=== PATIENT | female | born 1935 | race Caucasian/White ===

== ENCOUNTER 2022-08-23 08:05 | Day surgery (SDC) | payer MEDICARE ==
[2022-08-19 16:12] LABS: ALBUMIN 3.7 G/DL (3.4-5.0); ALKALINE PHOSPHATASE 50 IU/L (46-116); BLOOD UREA NITROGEN 21 MG/DL (7-18); BUN/CREATININE RATIO 22.1 (6.6-38.0); CALCIUM 8.5 MG/DL (8.5-10.1); CHLORIDE 101 MMOL/L (99-107); CREATININE 0.95 MG/DL (0.40-0.90); PRE OP ALT 19 U/L (30-65); PRE OP ANION GAP 6 (8-16); PRE OP AST 19 U/L (10-37); PRE OP BILIRUB, TOTAL 0.3 MG/DL (0.0-1.0); PRE OP GLUCOSE 123 MG/DL (70-104); PRE OP POTASSIUM 3.9 MMOL/L (3.4-5.1); PRE OP SODIUM 137 MMOL/L (135-145); TOTAL CARBON DIOXIDE 29.8 MMOL/L (24-32); TOTAL PROTEIN 7.4 G/DL (6.4-8.2); eGFR 56 ML/MIN
[2022-08-19 16:20] LABS: BASOPHILS # (AUTO) 0.1 X10'3 (0-0.2); BASOPHILS % (AUTO) 0.7 % (0-1); EOSINOPHILS # (AUTO) 0.4 X10'3 (0-0.9); EOSINOPHILS % (AUTO) 5.9 % (0-6); LYMPHOCYTES # (AUTO) 1.7 X10'3 (1.1-4.8); LYMPHOCYTES % (AUTO) 23.3 % (21-51); MEAN CORPUSCULAR HEMOGLOBIN 31.5 PG (27.0-31.0); MEAN CORPUSCULAR HGB CONC 34.1 g/dL (33.0-36.5); MEAN CORPUSCULAR VOLUME 92.5 FL (78-98); MEAN PLATELET VOLUME 7.7 FL (7.4-10.4); MONOCYTES # (AUTO) 0.5 X10'3 (0-0.9); MONOCYTES % (AUTO) 7.2 % (2-12); NEUTROPHILS # (AUTO) 4.7 X10'3 (1.8-7.7); NEUTROPHILS % (AUTO) 62.9 % (42-75); PRE OP HEMATOCRIT 39.2 % (35.0-45.0); PRE OP HEMOGLOBIN 13.4 g/dL (12.0-16.0); PRE OP PLATELET COUNT 319 X10'3 (140-440); RED BLOOD COUNT 4.24 X10'6 (4.20-5.60); RED CELL DISTRIBUTION WIDTH 13.8 % (11.5-14.5)
[2022-08-23] VITALS (11 sets, daily range): BP systolic 97–128; BP diastolic 46–88
[~2022-08-23] VITALS: Ht 157.5 cm; Wt 71.1 kg
[~2022-08-23 08:05] MED LIST: AMLO5TAB16 PO; ASPI-1071 PO; BUPIVAcaine 0.5% inj/PF 30 ML ONE; CALC600T35; CHOL20002 PO; COLL1CAP; ENZY1CAP PO; LEVO150T8 PO; LIDOcaine 1% 30ml preserv. free vial ONE; LOSA50TA64 PO; MAGN400C PO; MULT-1085 PO; TUMERIC; UBID100C16 PO; ceFAZolin inj. 2,000 MG in dextrose 5%-water 100 ML IV ONE
[2022-08-23] MEDS ORDERED: morphine 4 MG/ML inj SYRINge IV PRN (09:20)
[2022-08-23] MEDS ORDERED: meperidine/PF 25mg/ml syringe IV PRN ×3 (09:20)
[2022-08-23] MEDS ORDERED: ringers solution, lacted 1,000 ML IV SCH (09:20)
[2022-08-23] MEDS ORDERED: morphine 2 MG/ML inj. syringe IV PRN (09:20)
[2022-08-23] MEDS ORDERED: proCHLORperazine 10 MG/2 ml inj IV PRN (09:20)
[2022-08-23] MEDS ORDERED: ondansetron/PF 4mg/2ml inj IV PRN (09:20)
[2022-08-23] MEDS ORDERED: famotidine 20mg tablet PO ONE (09:40)
[2022-08-23] MEDS ORDERED: dexamethasone sod phosphate 10mg/ml inj ONE (09:55)
[2022-08-23] MEDS ORDERED: ondansetron/PF 4mg/2ml inj ONE (09:55)
[2022-08-23] MEDS ORDERED: desflurane 240ml liquid inh. IH ONE (09:55)
[2022-08-23] MEDS ORDERED: fentaNYL/PF 50MCG/1 ML 2ML syringe ONE (10:11)
[2022-08-23] MEDS ORDERED: midazolam 1 mg/ML 2ml injection ONE (10:11)
[2022-08-23] MEDS ORDERED: LIDOcaine 1%/PF 5ML 10 MG/ML VIAL ONE (10:14)
[2022-08-23] MEDS ORDERED: propofol inj 20 ML IV ONE (10:14)
[2022-08-23] MEDS ORDERED: rocuronium 10mg/ml inj IV ONE (10:16)
[2022-08-23] MEDS ORDERED: LIDOcaine 1% 30ml preserv. free vial IJ ONE (10:48)
[2022-08-23] MEDS ORDERED: BUPIVAcaine 0.5% inj/PF 30 ml vial IJ ONE (10:48)
[2022-08-23] MEDS ORDERED: acetaminophen 1,000mg/100ml IV 100 ML IV ONE (11:11)
--- NOTE | 2022-08-23 11:34 | NUR ---
Received from OR via , accompanied by Anesthesiologist TRIP AND OR NURSE and report given by Anesthesiolgist. PT IS DROWSY YET ABLE TO RESPOND TO VERBAL STIMULATION. ANGLE PAIN OR DISCOMFORT. 3 LAP SITES ON ABDOMEN WITH BANDAIDS; CDI. 20G TO LT HAND. VSS Addendum: 08/23/22 at 1221 by Pat Bernabe RN Amended: Links added.
[2022-08-23] MEDS ORDERED: acetaminophen 325mg tablet PO PRN (11:35)
--- NOTE | 2022-08-23 13:24 | NUR ---
I HAVE REVIEWED D/C INSTRUCTIONS WITH PATIENT AND THEY HAVE VERBALIZED UNDERSTANDING OF INSTRUCTIONS. PATIENT UP TO THE BEDSIDE COMMODE AND ABLE TO VOID; 200ML'S. PATIENT D/C HOME WITH ALL BELONGINGS AND FAMILY GAVE TRANSPORT Addendum: 08/23/22 at 1454 by Pat Bernabe RN Amended: Links added.
== END 2022-08-23 13:24 | disposition home or self-care (01) ==
LOC: PAS 08:05
PROVIDERS: ATTEND Surgery
DX: K40.20 Bilateral inguinal hernia, without obstruction or gangrene, not specified as recurrent (principal); K42.9 Umbilical hernia without obstruction or gangrene; I10 Essential (primary) hypertension; E89.0 Postprocedural hypothyroidism; G47.30 Sleep apnea, unspecified; M19.90 Unspecified osteoarthritis, unspecified site; Z79.899 Other long term (current) drug therapy; Z79.82 Long term (current) use of aspirin; Z98.890 Other specified postprocedural states; Z85.118 Personal history of other malignant neoplasm of bronchus and lung; Z85.828 Personal history of other malignant neoplasm of skin; Z90.2 Acquired absence of lung [part of]; Z85.3 Personal history of malignant neoplasm of breast; Z87.891 Personal history of nicotine dependence; Z72.89 Other problems related to lifestyle; Z88.5 Allergy status to narcotic agent; Z80.1 Family history of malignant neoplasm of trachea, bronchus and lung; Z80.3 Family history of malignant neoplasm of breast; Z82.61 Family history of arthritis; Z82.49 Family history of ischemic heart disease and other diseases of the circulatory system
CPT/HCPCS: 36415; 49591; 49650; 71046; 80053; 82948; 85025; 93005; C1781; J0131; J0690; J1100; J2175; J2250; J2405; J2704; J3010; J3490; J7030; J7060; J7120; S0020; Z7506; Z7508; Z7512; A4215; A4618